=== PATIENT | male | born 1930 | race Caucasian/White ===

== ENCOUNTER 2018-03-24 11:26 | Emergency (ER) | payer OTHER ==
[2018-03-24 11:43] VITALS: BP 154/88; PULSE 98; TEMP 97.8; BMI 23.6
[2018-03-24] MEDS ORDERED: ACETAMINOPHEN 325 MG TABLET (FP) PO ONE (12:04)
[2018-03-24] MEDS ORDERED: NAPROXEN 250 MG TABLET (FP) PO ONE (12:04)
[2018-03-24] MEDS ORDERED: ACETAMINOPHEN 325 MG TABLET (FP) ONE (12:07)
[2018-03-24] MEDS ORDERED: NAPROXEN 250 MG TABLET (FP) ONE (12:07)
--- NOTE | 2018-03-24 12:24 | PDOC ---
History of Present Illness - General Chief Complaint: Pain Stated Complaint: RIGHT ELBOW PAIN Time Seen by Provider: 03/24/18 11:28 History Source: Patient, Family Exam Limitations: No Limitations - History of Present Illness Initial Comments: 03/24/18 12:19 87-year-old male with history of hypertension, hyperlipidemia, gout, arthritis presents with right elbow pain since yesterday. Patient reports that he typically gets steroid injection into his elbows every 4 months. His last dose was in January 2018. The patient travels between [place] and [place]. Yesterday, patient noted that he developed atraumatic right elbow pain and swelling worse with extension and flexion. Denies any fevers, redness or rash. Patient had taken one tablet of Aleve this morning with minimal relief. Past History - Past Medical History Allergies/Adverse Reactions: Allergies Allergy/AdvReac Type Severity Reaction Status Date / Time No Known Allergies Allergy Verified 03/24/18 11:28 Home Medications: Ambulatory Orders Allopurinol [Zyloprim -] 100 mg PO DAILY 03/24/18 Atorvastatin Ca [Lipitor] 10 mg PO HS 03/24/18 Bumetanide 03/24/18 Cholecalciferol (Vitamin D3) [Vitamin D] 2,000 unit PO DAILY 03/24/18 Diltiazem Cd [Cardizem Cd -] 180 mg PO DAILY 03/24/18 Naproxen Sodium [Aleve] 220 mg PO DAILY 03/24/18 [place]-3/Dha/Epa/Fish Oil [Fish Oil 1,000 mg Softgel] 1 each PO DAILY 03/24/18 Omeprazole 20 mg PO DAILY 03/24/18 Tamsulosin HCl [Flomax] 0.4 mg PO HS 03/24/18 Vit C/Vit E/Lutein/Min/[place]-3 [Ocuvite Softgel] 1 each PO DAILY 03/24/18 COPD: No Disorders: Yes (BPH) HTN: Yes Hypercholesterolemia: Yes Other medical history: GOUT, ARTHRITIS, PNEUMONIA - Suicide/Smoking/Psychosocial Hx Smoking History: Former smoker Have you smoked in the past 12 months: No If you are a former smoker, when did you quit?: 40 YEARS AGO Information on smoking cessation initiated: No Hx Alcohol Use: Yes (3 DRINKS PER WEEK) Drug/Substance Use Hx: No Substance Use Type: None Review of Systems - Review of Systems Able to Perform ROS?: Yes Comments:: 03/24/18 12:20 GENERAL/CONSTITUTIONAL: No fever, weakness. HEAD, EYES, EARS, NOSE AND THROAT: No change in vision. No ear pain or discharge. No sore throat. CARDIOVASCULAR: No chest pain or shortness of breath. RESPIRATORY: No cough, wheezing, or hemoptysis. GASTROINTESTINAL: No abdominal pain, nausea, vomiting, diarrhea, or decreased PO intolerance. GENITOURINARY: No dysuria, frequency, or change in urination. MUSCULOSKELETAL: +right elbow pain. No neck or back pain. SKIN: No rash NEUROLOGIC: No headache, vertigo, loss of consciousness, or change in strength/ sensation. ENDOCRINE: No increased thirst. No abnormal weight change. HEMATOLOGIC/LYMPHATIC: No anemia, easy bleeding, or history of blood clots. ALLERGIC/IMMUNOLOGIC: No hives or skin allergy. *Physical Exam - Vital Signs Last Vital Signs Temp Pulse Resp BP Pulse Ox 97.8 F 98 H 16 154/88 98 03/24/18 11:28 03/24/18 11:28 03/24/18 11:28 03/24/18 11:28 03/24/18 11:28 - Physical Exam Comments: 03/24/18 12:24 GENERAL: Awake, alert, and fully oriented, in no acute distress. HEAD: No signs of trauma EYES: EOMI, sclera anicteric, conjunctiva clear ENT: Auricles normal inspection, hearing grossly normal, nares patent NECK: Normal ROM, supple EXTREMITIES: Normal range of motion, no edema. No clubbing or cyanosis. No cords, erythema, or tenderness. RUE: 2+ radial pulse. Sensation and strength intact throughout median/radian/ ulnar/deltoid distribution. R elbow with approximately 150 degree range of motion. Full extension of right elbow limited to swelling and pain of right elbow. NOT warm to touch. No rashes or lesions. NEUROLOGICAL: Cranial nerves II through XII grossly intact. Normal speech, normal gait SKIN: Warm, Dry, normal turgor, no rashes or lesions noted. ED Treatment Course - RADIOLOGY Radiology Studies Ordered: Category Date Time Status ELBOW-RIGHT [RAD] Stat Radiology 03/24/18 12:04 Ordered - Medications Given in the ED: ED Medications Discontinued Medications Generic Name Dose Route Start Last Admin Trade Name Freq PRN Reason Stop Dose Admin Acetaminophen 650 mg 03/24/18 12:04 03/24/18 12:10 Tylenol - PO 03/24/18 12:05 650 mg ONCE ONE Administration Naproxen 250 mg 03/24/18 12:04 03/24/18 12:10 Naprosyn - PO 03/24/18 12:05 250 mg ONCE ONE Administration Medical Decision Making - Medical Decision Making 03/24/18 12:25 Vital Signs Temp Pulse Resp BP Pulse Ox 97.8 F 98 H 16 154/88 98 03/24/18 11:28 03/24/18 11:28 03/24/18 11:28 03/24/18 11:28 03/24/18 11:28 This could potentially be a gout flareup vs. arthritis. I have low suspicion for septic joint given no fever and presentation. Will obtain a right elbow xray to re-evaluate and treat with medications. If xray demonstrates no other acute findings, I feel comfortable with initial conservative management of MADDY wrap, elevation, NSAIDs, and follow up with orthopedics. 03/24/18 13:01 Radiograph reviewed by me, pending official radiology read. No acute fractures, arthritic changes, and effusion. Case discussed with Dr. Moraes. Patient can be discharged and followed up in his office right after discharge after ED. Pt will be escorted by his family. I discussed the physical exam findings, ancillary test results and final diagnoses with the patient. I answered all of the patient's questions. The patient was satisfied with the care received and felt comfortable with the discharge plan and treatment plan. The patient will call their primary care physician within 24 hours to arrange follow-up and will return to the Emergency Department with any new, persistant or worsening symptoms. 03/24/18 15:[address] Bey. Possible lucency in the radial head. However, given the clinical history, it seems less likely that this is a fracture. So I had called back the patient's daughter Ms. Miranda. The patient states that he had a therapeutic arthrocentesis of approx 7 cc and had a hydrocortisone injection, and feels essentially complete relief. I had informed the patient 's daughter that he should follow up with Dr. Moraes , and that if he has persistent or worsening pain that he should return to the ER for a CT elbow. Pt's daughter states that he feels better and will do so if pain worsens. *DC/Admit/Observation/Transfer Diagnosis at time of Disposition: Elbow pain Qualifiers: Laterality: right Qualified Code(s): M25.521 - Pain in right elbow - Discharge Dispostion Disposition: HOME Condition at time of disposition: Good Decision to Admit order: No - Referrals Referrals: Juan C Moraes MD [Staff Physician] - - Patient Instructions Printed Discharge Instructions: DI for Elbow Pain Additional Instructions: Please go directly to Dr. Moraes office downstairs in this building. - Post Discharge Activity
== END 2018-03-24 13:06 | disposition home or self-care (01) ==
LOC: FER 11:26
DX: M25.521 Pain in right elbow (principal)
CPT/HCPCS: 73070-TC-RT-FY; 99282-25

== ENCOUNTER 2018-06-26 13:47 | Emergency (ER) | payer OTHER ==
[2018-06-26 13:52] VITALS: BP 143/84; PULSE 80; TEMP 98.1; BMI 23.6
--- NOTE | 2018-06-26 14:01 | PDOC ---
History of Present Illness - History of Present Illness Initial Comments: 06/26/18 14:24 The patient is an 88 year old male with a history of HTN, HLD who presents for evaluation of difficulty speaking. The patient reports an episode where he was unable to speak and noted garbled speech. He states that the episode lasted about 2 minutes before his symptoms completely resolved. The patient states that he called a physician friend today who recommended that he be evaluated. The patient states that he is currently asymptomatic and otherwise denies any fevers, chills, headache, numbness, tingling, weakness, SOB, chest pain, nausea , vomiting, abdominal pain, or changes with urination or bowel movements. <Aníbal Campoverde - Last Filed: 06/26/18 18:42> <Latanya Ghosh - Last Filed: 06/26/18 19:55> - General Chief Complaint: Altered Mental Status Stated Complaint: TROUBLE SPEAKING YESTERDAY Time Seen by Provider: 06/26/18 14:00 NIH Stroke Scale - Last Known Well Date/Time & Onset Date Last Known Well: 06/25/18 Time Last Known Well: 01:00 - Initial Evaluation Level of consciousness: Alert Ask patient the month and their age: Answers both correctly Ask patient to open & close eyes; make fist and let go: Obeys both correctly Best gaze (horizontal eye movement): Normal Visual field testing: No visual field loss Facial paresis (Show teeth/raise eyebrows/close eyes tight): Minor paralysis ( flattened nasolabial fold, asymmetry on smiling) Motor Function: Left Arm: Normal Motor Function: Right Arm: Normal (extends arm 90 (or 45) degrees for 10 seconds without drift Motor Function: Left Leg: Normal (extends leg 30 degrees for 5 seconds without drift) Motor Function: Right Leg: Normal (extends leg 30 degrees for 5 seconds without drift) Limb Ataxia: No ataxia Sensory(Use pinprick test arms,legs,trunk,face/side to side): Normal Best language (Describe picture, name items, read sentences): No Aphasia Dysarthria (read several words): Normal articulation Extinction and Inattention: No abnormality - Total Score NIH Stroke Scale Score: 1 <Aníbal Campoverde - Last Filed: 06/26/18 18:42> tPA Exclusion Checklist 0-3hr - Time Elapsed Date last known well: 06/25/18 Time last known well: 01:00 Elaspsed time: 1 Day(s) and 17 Hour(s) and 42 Minutes - Thrombolytic Therapy Candidate Is the patient eligible for Thrombolytic Therapy?: No - Relative Exclusion Criteria 0-3h Rapid improvement: Yes Stroke severity too mild: Yes - Ineligibility reason(s) Reasons No tPA given: Outside of window - delayed arrival, See reason(s) noted above <Aníbal Campoverde - Last Filed: 06/26/18 18:42> Past History - Past Medical History COPD: No DVT: No Disorders: Yes (BPH) HTN: Yes Hypercholesterolemia: Yes - Suicide/Smoking/Psychosocial Hx Smoking History: Former smoker Have you smoked in the past 12 months: No If you are a former smoker, when did you quit?: 40 YEARS AGO Information on smoking cessation initiated: No Hx Alcohol Use: Yes Drug/Substance Use Hx: No Substance Use Type: Alcohol <NiraliAníbal - Last Filed: 06/26/18 18:42> <Latanya Ghosh - Last Filed: 06/26/18 19:55> - Past Medical History Allergies/Adverse Reactions: Allergies Allergy/AdvReac Type Severity Reaction Status Date / Time No Known Allergies Allergy Verified 06/26/18 13:49 Home Medications: Ambulatory Orders Allopurinol [Zyloprim -] 100 mg PO DAILY 06/26/18 Aspirin [ASA -] 81 mg PO DAILY 06/26/18 Atorvastatin Calcium [Lipitor] 10 mg PO DAILY 06/26/18 Diltiazem Cd [Cardizem Cd -] 180 mg PO DAILY 06/26/18 Finasteride [Proscar -] 5 mg PO DAILY 06/26/18 Metoprolol Succinate [Toprol Xl] 50 mg PO DAILY 06/26/18 Omeprazole 20 mg PO DAILY 06/26/18 Tamsulosin HCl 0.4 mg PO DAILY 06/26/18 Review of Systems - Review of Systems Comments:: 06/26/18 14:31 Constitutional: No fevers, chills, fatigue, malaise HEENT: No Rhinorrhea, nasal congestion, visual changes Cardiovascular: No chest pain, syncope, palpitations, lightheadedness Respiratory: No Cough, SOB, Hemoptysis, Gastrointestinal: No Abdominal pain, Nausea, Vomiting, Constipation, Diarrhea, Melena Genitourinary: No Dysuria, Frequency, Urgency, Hesitancy, Hematuria, Flank pain Musculoskeletal: No Myalgia, arthralgia Skin: No rashes, itching, bruising, pallor Neurologic: Difficulty speaking. No Headache, Dizziness, Numbness, Weakness, or Tingling Psychiatric: No Hallucinations. No SI or HI <Aníbal Campoverde - Last Filed: 06/26/18 18:42> *Physical Exam - Vital Signs Last Vital Signs Temp Pulse Resp BP Pulse Ox 98.1 F 80 18 143/84 97 06/26/18 13:49 06/26/18 13:49 06/26/18 13:49 06/26/18 13:49 06/26/18 13:49 - Physical Exam Comments: 06/26/18 14:32 General Appearance: Nourished. No Apparent Distress HEENT: EOMI, ERICA. No Pharyngeal Erythema, Tonsillar Exudate, Tonsillar Erythema Neck: No Cervical Lymphadenopathy Respiratory/Chest: Lungs Clear, Normal Breath Sounds. No Crackles, Rales, Rhonchi, Wheezing Cardiovascular: Regular Rhythm, Regular Rate. No Murmur, Gallops, Rubs Gastrointestinal/Abdominal: Normal Bowel Sounds, Soft. No Guarding, Rebound, Tenderness Musculoskeletal: No CVA Tenderness Extremity: Normal Capillary Refill Integumentary: Normal Color, Dry, Warm Neurologic: Mild Facial asymmetry noted with mild left lower facial paralysis. Fully Oriented, Alert, Normal Mood/Affect, Normal Response, Motor Strength 5/5. Normal Finger to Nose and Heel to G[place] <Aníbal Campoverde - Last Filed: 06/26/18 18:42> - Vital Signs Last Vital Signs Temp Pulse Resp BP Pulse Ox 98.1 F 80 18 143/84 97 06/26/18 13:49 06/26/18 13:49 06/26/18 13:49 06/26/18 13:49 06/26/18 13:49 <Latanya Ghosh - Last Filed: 06/26/18 19:55> Heart Score/ECG Review #1 ECG reviewed & interpreted by me at: 16:19 General ECG Interpretation: Sinus Rhythm, Normal Rate, No acute ischemic changes 06/26/18 16:19 Right Bundle Branch Block <Aníbal Campoverde - Last Filed: 06/26/18 18:42> ED Treatment Course - LABORATORY CBC & Chemistry Diagram: 06/26/18 14:30 06/26/18 14:30 <Aníbal Campoverde - Last Filed: 06/26/18 18:42> - LABORATORY CBC & Chemistry Diagram: 06/26/18 14:30 06/26/18 14:30 - ADDITIONAL ORDERS Additional order review: Laboratory Results 06/26/18 06/26/18 06/26/18 14:30 14:30 14:30 PT with INR 13.6 H INR 1.22 Sodium 140 Potassium 4.0 Chloride 101 Carbon Dioxide 28 Anion Gap 11 BUN 14 Creatinine 1.1 Creat Clearance w eGFR > 60 Random Glucose 128 H Calcium 9.0 Total Bilirubin 0.3 AST 22 ALT 19 Alkaline Phosphatase 87 Troponin I < 0.03 Total Protein 6.9 Albumin 3.6 Triglycerides 141 Cholesterol 102 Total LDL Cholesterol 41 HDL Cholesterol 33 06/26/18 14:30 RBC 4.61 MCV 82.7 MCHC 32.4 RDW 16.0 H MPV 6.7 L Neutrophils % 68.4 Lymphocytes % 21.8 Monocytes % 7.4 Eosinophils % 1.9 Basophils % 0.5 <Latanya Ghosh - Last Filed: 06/26/18 19:55> Medical Decision Making - Medical Decision Making 06/26/18 14:33 The patient is an 88 year old male with a history of HTN, HLD who presents for evaluation of difficulty speaking. Differential includes but is not limited to : Stroke, TIA, Intracranial process, Infectious, metabolic derangement. Given the patient's history and physical exam, we are concerned about a TIA and will obtain a cbc, cmp, troponin, coags, lipid profile, ekg, and head CT to evaluate further. We will continue to monitor and reassess while here in the ED. The patient is not a tPA candidate as he is outside the window. 06/26/18 16:04 CBC, cmp, troponin, coags are unremarkable. Head CT is unremarkable as read by our radiologist. However, given the patient's reported symptoms, we believe he requires observation admission for neurology evaluation. We discussed the case with the admitting team who accepted the patient for admission. 06/26/18 18:42 The patient voiced that he wished to leave AMA and follow up with his doctor's at [facility]. We discussed the risks of leaving AMA including but not limited to : , worsening symptoms, permanent disability, stroke and the patient continued to wish to leave AMA. We discussed the benefits of admission and further monitoring and work up and the patient voiced that he continued to wish to leave AMA. The patient signed the AMA form and his iv was removed. The patient voiced that he would follow up with his doctors at [facility]. He ambulated without difficulty out of the ED. <Aníbal Campoverde - Last Filed: 06/26/18 18:42> *DC/Admit/Observation/Transfer - Discharge Dispostion Decision to Admit order: Yes <Aníbal Campoverde - Last Filed: 06/26/18 18:42> - Discharge Dispostion Decision to Admit order: Yes <Latanya Ghosh - Last Filed: 06/26/18 19:55> Diagnosis at time of Disposition: TIA (transient ischemic attack) - Discharge Dispostion Disposition: AGAINST MEDICAL ADVICE Condition at time of disposition: Stable - Referrals Referrals: Jamari Waters MD [Staff Physician] - - Patient Instructions Printed Discharge Instructions: DI for Transient Ischemic Attack Additional Instructions: Discussion at the bedside with patient and family. Pt has capacity to make medical decisions. Discussed indications for treatment and admission, management plan, risks and benefits. There is no evidence of psychosis, altered mental status or intoxication. Pt understands the nature of condition and treatment plan, including potential risks but not limited to: cardiac arrest, severe infection, dehydration, myocardial infarction, stroke, respiratory failure, coma, severe disability and . Pt will be treated with close follow up with primary care doctor with reevaluation. Return precautions advised , call 911 immediately if severe life threatening symptoms or concerns.. Pt has verbalized understanding of information provided, questions answered.
--- NOTE | 2018-06-26 14:12 | PDOC ---
Attending Attestation - Resident Resident Name: Aníbal Campoverde - ED Attending Attestation I have performed the following: I have examined & evaluated the patient, The case was reviewed & discussed with the resident, I agree w/resident's findings & plan - HPI HPI: 06/26/18 15:45 [place] 88 YOM with h/o gout, HTN, HLD, BPH, GERD presenting brief episode of word finding difficulty and garbled speech that lasted 2 minutes, noted yesterday, since self resolved. Associated at that time with mild headache, Since then, no additional sx. Gait stable and ambulatory. went to urgent care today, sent in for r/o TIA and eval for hypertension PMD: Dr. Conteh - Physicial Exam PE: 06/26/18 15:46 NAD, well appearing, MMM, nl conjunctiva, anicteric; neck supple. lungs clear, RRR, abdomen soft nontender. GOMEZ x4, Alert, oriented to person time and place. CN II-XII grossly intact. Strength prox and distally 5/5 throughout. Sensation grossly intact to light touch. No cerebellar signs, no dysmetria, bilateral finger to nose and heel to douglas equal and symmetric. Speech clear. 2+ pitting peripheral edema. normal color for ethnicity, [facility]. 06/26/18 17:02 - Medical Decision Making 06/26/18 15:46 [place] 88 YOM with h/o gout, HTN, HLD, BPH, GERD presenting brief episode of word finding difficulty and garbled speech that lasted 2 minutes, noted yesterday, since self resolved. Associated at that time with mild headache, Since then, no additional sx. Gait stable and ambulatory. went to urgent care today, sent in for r/o TIA and eval for hypertension DDx. CVA, head bleed/intracranial mass. TGA. vertebral dissection/cervical dissection, aneurysm. TIA. NIHSS zero currently Vital signs reviewed, wnl. notable for very mild HTN, but not malignant. Medical Plan: CBC, CMP, coags, ECG, CT head Prior notes reviewed, including admissions, discharges and consultations. laboratory results and imaging reviewed, basic labs and lytes wnl, coags normal EKG normal sinus rhythm, no interval abnormalities, ST and T wave segments and morphology normal. Nonspecific T wave abnormalities, RBBB , no prior EKGs CT head neg for CVA/bleed/mass, microvascular changes Dispo: Admit for stroke workup, neuro cs. r/o TIA/CVA, inpatient MRI/MRA.. Discussed results and management plan with pt at bedside, agree with impression and plan; admit to Dr. Best, requesting transfer to [facility] for admission to stroke tele. inpatient consult to neuro ------- however at 630 pm, pt elects to sign out AMA. Discussion at the bedside with patient and resident/RN at bedside. Pt has capacity to make medical decisions. Discussed indications for treatment and admission, management plan, risks and benefits. There is no evidence of psychosis, altered mental status or intoxication. Pt understands the nature of condition and treatment plan, including potential risks but not limited to: cardiac arrest, severe infection, dehydration, myocardial infarction, stroke, respiratory failure, coma, severe disability and . Pt will be treated with close follow up with primary care doctor with reevaluation. Return precautions advised, call 911 immediately if severe life threatening symptoms or concerns.. Pt has verbalized understanding of information provided, questions answered. 06/26/18 19:49
[2018-06-26 14:52] LABS: BASO % 0.5 % (0-2.0); EOS % 1.9 % (0-4.5); HEMATOCRIT 38.1 % (35.4-49); HEMOGLOBIN 12.3 GM/dl (11.7-16.9); LYMPH % 21.8 % (8-40); MCH 26.8 pg (25.7-33.7); MCHC 32.4 g/dl (32.0-35.9); MEAN CELL VOLUME 82.7 fl (80-96); MEAN PLT VOLUME 6.7 fl (7.5-11.1); MONO % 7.4 % (3.8-10.2); NEUT % 68.4 % (42.8-82.8); PLATELET COUNT 265 K/MM3 (134-434); RBC 4.61 M/mm3 (4.00-5.60)
[2018-06-26 15:01] LABS: INR 1.22 (0.82-1.09); PROTHROMBIN TIME (PATIENT) 13.6 SEC (10.2-13.0)
[2018-06-26 15:10] LABS: ALBUMIN 3.6 g/dl (3.5-5.0); ALK PHOS 87 U/L (32-92); ANION GAP 11 MMOL/L (8-16); BILIRUBIN,TOTAL 0.3 mg/dl (0.2-1.0); BLOOD UREA NITROGEN 14 mg/dl (7-18); CHLORIDE 101 mmol/L (98-107); CHOLESTEROL 102 mg/dl; CO2 28 mmol/L (22-28); CREATININE 1.1 mg/dl (0.6-1.3); GLUCOSE,RANDOM 128 mg/dl (74-106); HDL CHOLESTEROL 33 mg/dl (29-89); SGOT/AST 22 U/L (10-42); SGPT/ALT 19 U/L (10-40); SODIUM 140 mmol/L (136-145); TOT PROT 6.9 g/dl (6.4-8.3); TRIGLYCERIDES 141 mg/dl (35-160)
--- NOTE | 2018-06-27 16:44 | EKG ---
Test Reason : Blood Pressure : / mmHG Vent. Rate : 054 BPM Atrial Rate : 054 BPM P-R Int : 186 ms QRS Dur : 148 ms QT Int : 462 ms P-R-T Axes : 011 002 -06 degrees QTc Int : 438 ms SINUS BRADYCARDIA RIGHT BUNDLE BRANCH BLOCK INFERIOR INFARCT , AGE UNDETERMINED ABNORMAL ECG NO PREVIOUS ECGS AVAILABLE Confirmed by Christofer Marie ([id number]) on 06/27/2018 4:44:18 PM Referred By: GERHARD Confirmed By:Christofer Marie
== END 2018-06-26 18:44 | disposition left against medical advice (07) ==
LOC: FER 13:47
DX: G45.9 Transient cerebral ischemic attack, unspecified (principal); I10 Essential (primary) hypertension; E78.5 Hyperlipidemia, unspecified
CPT/HCPCS: 36415; 70450-TC; 80053; 82465; 83718; 83721; 84478; 84484; 85025; 85610; 93005; 99282-25